=== PATIENT | female | born 1955 ===

== ENCOUNTER 2016-12-12 07:09 | Day surgery (SDC) | payer MEDICARE ==
[2016-12-12] MEDS ORDERED: Lactated Ringer's 500 ML IV ONE (07:51)
[2016-12-12] MEDS ORDERED: Lidocaine 2% MPF (5 ml) Inj ONE (09:53)
[2016-12-12] MEDS ORDERED: Propofol 10 mg/ml Inj (20 ML) ONE (09:53)
[2016-12-12] MEDS ORDERED: Midazolam 2 MG/2 ML VIAL ONE (09:53)
[2016-12-12 10:44] VITALS: BP 110/50; PULSE 66; RESP 14; TEMP 97; O2SAT 99
== END 2016-12-12 11:05 | disposition home or self-care (01) ==
LOC: H.ENDO 07:09
PROVIDERS: ATTEND Internal Medicine Gastroenterology
DX: Z12.11 Encounter for screening for malignant neoplasm of colon (principal); K64.8 Other hemorrhoids
CPT/HCPCS: 45378; J2250; J2704; J7120